=== PATIENT | male | born 2000 | race African-American/Black ===

== ENCOUNTER 2024-05-13 20:10 | Emergency (ER) | payer MEDICAID ==
[~2024-05-13] VITALS: Ht 180.3 cm; Wt 82.0 kg
[2024-05-13 20:27] VITALS: TEMP 98.3; O2SAT 100
[2024-05-13 21:14] VITALS: BP 150/89; PULSE 99; RESP 16
[2024-05-13] MEDS: KETOROLAC 15MG/ML VIAL IM ONE (21:14)
[2024-05-13] MEDS ORDERED: NAPR-1176 MT (22:42)
== END 2024-05-13 22:48 | disposition home or self-care (01) ==
LOC: ER 20:10
DX: S62.306A Unspecified fracture of fifth metacarpal bone, right hand, initial encounter for closed fracture (principal); J45.909 Unspecified asthma, uncomplicated; Z98.890 Other specified postprocedural states; Y93.39 Activity, other involving climbing, rappelling and jumping off; Y92.89 Other specified places as the place of occurrence of the external cause; Y99.8 Other external cause status
CPT/HCPCS: 99283; 73130; 29125; 96372; J1885